=== PATIENT | female | born 1940 | race Caucasian/White ===

== ENCOUNTER 2018-12-20 10:32 | Inpatient (IN) ==
[2018-12-20] MEDS ORDERED: MORPHINE IV ONE (10:53)
[2018-12-20] MEDS ORDERED: ZOFRAN IV ONE (10:53)
--- NOTE | 2018-12-20 11:22 | Diag Imaging Result Doc PS360 ---
EXAM: ANKLE COMPLETE RIGHT 12/20/2018 HISTORY: injury TECHNIQUE: Right ankle three views COMMENT: There is a comminuted fracture of the distal fibula which is fractured in two places. There is a fracture of the medial malleolus. The plafond is subluxed medially with respect to the talar dome. IMPRESSION: Unstable ankle fracture. Electronically signed by Marito Madison 12/20/2018 11:20 AM
[2018-12-20] MEDS ORDERED: ATIVAN IV ONE (11:29)
--- NOTE | 2018-12-20 11:29 | PROVIDER DOCUMENTATION ---
This chart was entered by Nicky Villalta Scribe, acting as scribe for Angela Harrell CRNP. HPI-Musculoskeletal Pain/Inj - GENERAL Chief Complaint: Fall Stated Complaint: FALL/RIGHT ANKLE PAIN Time Seen by Provider: 12/20/18 10:52 Source: patient, EMS ([facility]) - HX OF PRESENT ILLNESS-MUSKULOSKELTAL Nature of Presenting Problem: 78 yof presents to the ed via ems with rt ankle deformity post fall. pt sts they tripped and ow can not bear weight on rt ankle. Quality of Pain: reports: sharp Severity in ED: severe Onset/Duration: just prior to arrival Timing: still present Modifying Factors: improves with: immobilization. worse with: movement, palpation Any recent injury?: Yes (fall) Locality of Occurance: Home Similar Symptoms Previously?: No Recently seen or treated by another doctor?: No - FALL INJURY Location of Pain/Injury: reports: other (rt ankle) Pain Radiation: reports: no radiation Reason for Fall: reports: tripped Symptoms prior to fall:: reports: none Loss of Consciousness: no loss of consciousness Injury Associated Symptoms: reports: snap/crack/pop sensation, unable to bear weight, trouble walking. denies: back/neck pain, chest pain, headaches, shortness of breath - LOWER EXTREMITY PAIN/INJURY Lower Extremities Pain: ankle: right (with deformity noted ) Context / Method of Injury: reports: fell Associated Symptoms: reports: denies symptoms Review of Systems - Adult - REVIEW OF SYSTEMS - ADULT Constitutional: denies: chills, fever Eyes: reports: no symptoms reported Ears, Nose, Mouth & Throat: reports: no symptoms reported Cardiovascular: denies: chest pain, palpitations Respiratory: denies: shortness of breath, wheezing Gastrointestinal: denies: abdominal pain, diarrhea, nausea, vomiting Genitourinary: reports: no symptoms reported Musculoskeletal: reports: see HPI, joint pain (rt ankle), joint swelling (rt ankle). denies: neck pain Integumentary: reports: no symptoms reported Neurological: reports: no symptoms reported Psychiatric: reports: no symptoms reported Endocrine: reports: no symptoms reported Hematologic/Lymphatic: reports: no symptoms reported Allergic/Immunologic: reports: no symptoms reported All Other Systems: Reviewed and Negative Past History - Adult - PAST MEDICAL HISTORY-ADULT Review of Records: reports: Old Records Reviewed, Nursing Assessment Review, Medications Reviewed, Social history reviewed & non-contributory. Major Childhood Illnesses: reports: denies history Cardiovascular: reports: CAD, HTN, hyperlipidemia Respiratory: reports: denies history Gastrointestinal: reports: denies history Obstetrical/Gynecological: reports: denies history Genitourinary: reports: denies history Musculoskeletal: reports: denies history Neurological: reports: denies history Psychiatric: reports: anxiety, depression Endocrine/Immune: reports: denies history Other Conditions: reports: other (breast cancer) - PRIOR SURGERIES/PROCEDURES Surgical/Procedure History: reports: appendectomy, cholecystectomy, breast - IMMUNIZATION STATUS Childhood Immunizations: See Nurse Assessment Flu Vaccine: See Nurse Assessment - FAMILY HISTORY Family History: reviewed, not pertinent - SOCIAL HISTORY Smoking: denies Substance Use: denies Living Situation: family Physical Exam-Injury Related - Physical Exam-Injury Related Initial Vital Signs Reviewed: Yes General Appearance: appears well, alert, mild distress Eyes: PERRL/EOMI, pink conjunctivae Head, Ears, Nose, Mouth & Throat: moist mucous membranes, normal ENT inspection Neck: non-tender, full range of motion, supple, normal inspection Respiratory: chest non-tender, lungs clear, normal breath sounds Cardiovascular: normal peripheral pulses, tachycardia (119) Chest/Breast: deferred Abdominal Exam: normal bowel sounds, non tender, soft Female Genitalia/Pelvic Exam: deferred Rectal Exam: deferred Hemoccult Exam: deferred Lymphatic: no adenopathy Back Exam: normal inspection, no CVA tenderness, no vertebral tenderness Extremity: normal capillary refill, pelvis stable, deformity (rt ankle), swelling (rt ankle), tenderness (rt ankle). negative: normal gait Integumentary: normal color, warm/dry, ecchymosis (rt ankle), swelling (rt ankle), tenderness (rt ankle) Neurologic: grossly normal Psych/Mental Status: normal mood/affect, normal thought content, normal thought process, oriented x 3 Progress - PLAN OF CARE/RESULTS Progress/Plan/Lab Results: Vital Signs - 8 hr 12/20/18 10:35 12/20/18 11:19 12/20/18 11:37 Temperature 97.5 F L Pulse Rate 119 H 96 H 95 H Respiratory Rate 22 23 15 Blood Pressure 146/61 184/75 151/112 O2 Sat by Pulse Oximetry 98 99 100 12/20/18 11:38 12/20/18 11:40 12/20/18 11:42 Temperature Pulse Rate 91 H 89 Respiratory Rate 18 16 Blood Pressure 151/112 152/82 152/82 O2 Sat by Pulse Oximetry 100 99 12/20/18 12:01 12/20/18 12:15 12/20/18 12:31 Temperature Pulse Rate 88 88 81 Respiratory Rate 16 21 15 Blood Pressure 141/68 141/68 135/71 O2 Sat by Pulse Oximetry 99 98 98 12/20/18 12:52 12/20/18 13:02 12/20/18 13:27 Temperature Pulse Rate 91 H 95 H 71 Respiratory Rate 15 18 12 Blood Pressure 135/71 141/77 119/61 O2 Sat by Pulse Oximetry 100 98 98 12/20/18 13:29 12/20/18 13:31 Temperature Pulse Rate 72 70 Respiratory Rate 13 16 Blood Pressure 119/61 116/50 O2 Sat by Pulse Oximetry 99 98 Laboratory Results - last 24 hr 12/20/18 12/20/18 12/20/18 11:01 11:01 13:16 WBC 8.34 RBC 4.30 Hgb 12.5 Hct 37.3 MCV 86.7 MCH 29.1 MCHC 33.5 RDW Std Deviation 13.7 Plt Count 372 MPV 10.6 H Immature Gran % (Auto) 0.0 Neut % (Auto) 78.1 H Lymph % (Auto) 15.1 L [place] % (Auto) 5.8 Eos % (Auto) 0.8 Baso % (Auto) 0.2 Immature Gran # (Auto) 0.00 Neut # (Auto) 6.51 H Lymph # (Auto) 1.26 [place] # (Auto) 0.48 Eos # (Auto) 0.07 Baso # (Auto) 0.02 Sodium 143 Potassium 3.8 Chloride 107 Carbon Dioxide 22 L Anion Gap 14 BUN 14 Creatinine 0.5 Estimated GFR/1.73 m2 > 60 BUN/Creatinine Ratio 28 Glucose 123 H Calculated Osmolality 287 Calcium 9.1 Total Bilirubin 1.24 H AST 18 ALT 14 Alkaline Phosphatase 65 Total Protein 6.3 Albumin 4.5 Globulin 1.8 Albumin/Globulin Ratio 2.5 Urine Source CLEAN CATCH Urine Color YELLOW Urine Turbidity CLEAR Urine pH 6.0 Ur Specific [place] 1.017 Urine Protein NEGATIVE Ur Glucose (Stick) NEGATIVE Ur Ketones (Stick) NEGATIVE Urine Blood NEGATIVE Urine Nitrite NEGATIVE Urine Bilirubin NEGATIVE Urobilinogen Dipstick NORMAL Urine Leukocytes NEGATIVE Urine WBC (Auto) <10 Urine RBC (Auto) <10 U Epithel Cells (Auto) <10 Urine Bacteria (Auto) NEGATIVE Orders Category Date Time Status Betts Cath Insertion ORDERED Care 12/20/18 12:52 Active OCL Splint DIRECTED Care 12/20/18 12:40 Active Saline Loc NOW Care 12/20/18 10:52 Active NPO Diet 12/20/18 11:38 Active ANKLE COMPLETE RIGHT [RAD] Stat Exams 12/20/18 10:52 Completed ANKLE COMPLETE RIGHT [RAD] Stat Exams 12/20/18 13:08 Completed CHEST-PORTABLE [RAD] Stat Exams 12/20/18 12:52 Completed CBC WITH ELECTRONIC DIFF [HEME] Stat Lab 12/20/18 11:01 Completed COMPREHENSIVE METABOLIC PANEL [CHEM] Stat Lab 12/20/18 11:01 Completed URINALYSIS W/POSS RFLX CULT [URINALYSIS] Stat Lab 12/20/18 13:16 Completed Hydromorphone [Dilaudid] Med 12/20/18 12:41 Discontinued 1 mg IV NOW ONE Lorazepam [Ativan] Med 12/20/18 11:29 Discontinued 1 mg IV NOW ONE Morphine Med 12/20/18 10:53 Discontinued 2 mg IV NOW ONE Ondansetron [Zofran] Med 12/20/18 10:53 Discontinued 4 mg IV NOW ONE Propofol [Diprivan 1%] Med 12/20/18 12:39 Discontinued 56 mg IV STAT ONE EKG [EKG] Stat Ther 12/20/18 12:51 Draft Result Diagrams: 12/20/18 11:01 12/20/18 11:01 - EKG 1 Time of EKG reading by physician:: 13:57 EKG Read and Signed by:: Ana Bonilla EKG Interpretation (*Must complete 3 of following elements*): Abnormal Rate: 68 Rhythm: SR [place]: normal QRS: other (Prolonged QT) OR Interval: normal - XRAY 1 XRAY: Right XRAY Study: Ankle Impression: See EMR Report (EXAM: ANKLE COMPLETE RIGHT 12/20/2018 HISTORY: injury TECHNIQUE: Right ankle three views COMMENT: There is a comminuted fracture of the distal fibula which is fractured in two places. There is a fracture of the medial malleolus. The plafond is subluxed medially with respect to the talar dome. IMPRESSION: Unstable ankle fracture. Electronically signed by Marito Madison 12/20/2018 11:20 AM 12/20/18 1120 Interpreting Physician: Marito Madison MD Dictated Date/Time: 12/20/18 1119 cc: Angela Harrell; Jeffry Hernandez MD) 2 XRAY Study: Chest ([facility] - [address], [address], [place] [address] [address] Department of Imaging Patient: KAYLEE CHILDRESSDM Date: 12/20/18#: [id number] : 1940DM Status: REG ERAcct#: [id number] Age/Sex: 78/FRoom/Bed: Loc: ED Ordering Physician: Angela Harrell Family Physician: Jeffry Hernandez MD Reason for Procedure: admit Signed EXAM: CHEST-PORTABLE INDICATION: admit TECHNIQUE: One view COMPARISON: None. FINDINGS: The lungs are grossly clear. There is no discrete pleural fluid collection or pneumothorax. The cardiomediastinal silhouette and central vasculature are grossly unremarkable. IMPRESSION: No evidence of acute pathology by plain radiograph. Electronically signed by Farrukh Joe 12/20/2018 1:47 PM 12/20/18 1347 Interpreting Physician: Farrukh Joe MD Dictated Date/Time: 12/20/18 1347 cc: Angela Harrell; Jeffry Hernandez MD) XRAY Interpretation: See note 3 XRAY: Right XRAY Study: Ankle ([facility] - [address], [address], [place] [address] [facility] - [facility] [place] [address] Department of Imaging Patient: KAYLEE CHILDRESS Date: 12/20/18#: [id number] : 2ADM Status: REG ERAcct#: [id number] Age/Sex: 78/FRoom/Bed: Loc: ED Ordering Physician: Angela Harrell Family Physician: Jeffry Hernandez MD Reason for Procedure: post reduction Signed EXAM: ANKLE COMPLETE RIGHT INDICATION: post reduction TECHNIQUE: 3 views COMPARISON: 12/20/2018 FINDINGS: There has been interval reduction of the comminuted fracture of the distal fibular shaft and the fract ure through the base of the medial malleolus. Their positions are much closer to anatomic position on the current study. No other fractures are appreciated. Casting material is seen overlying the lower leg and ankle. IMPRESSION: Interval reduction of the fractures of the distal tibia and fibula as described. Electronically signed by Farrukh Joe 12/20/2018 1:46 PM 12/20/18 1346 Interpreting Physician: Farrukh Joe MD Dictated Date/Time: 12/20/18 1349 cc: Angela Harrell; Jeffry Hernandez MD) XRAY Interpretation: See note - CONSULTS/PCP/HOSPITALIST Notification #1 *Consult/PCP/Hospitalist*: Nirmala called for Dr. Dow Time Discussed: 12:34 Reason/Comments: Consult Consult Disposition: other (She will talk to Dr. Dow and call back.) #2 Consult: Dr. Dow Time Discussed: 13:00 Reason/Comments: Consult Consult Disposition: other (Reduce Fx and splint before admission) #3 Consult: Jaqueline for Dr. Weber Time Discussed: 14:16 Reason/Comments: Admission Consult Disposition: Will see in ED, Admit Departure - Departure Date of Disposition Decision: 12/20/18 Time of Disposition Decision: 14:17 DIAGNOSIS: Ankle fracture, right Qualifiers: Encounter type: initial encounter Fracture type: closed Qualified Code(s): S82.891A - Other fracture of right lower leg, initial encounter for closed fracture Disposition: ADMITTED INPATIENT Certified Medical Emergency: Emergent Condition: Stable Referrals and Follow-Ups: Jeffry Hernandez MD [Primary Care Provider] - - Critical Care Note This patient required my direct & personal management of CC.: No Attestation - Physician/ CALLIE Attestation Patient care was provided by Advanced Practice Provider:: Yes Advanced Practice Provider:: Angela Harrell Advanced Practice Provider documentation review:: The Mid-level provider do cumentation, treatment plan and medical decision making was reviewed by the physician who agrees with all treatment and medical decision making by the MLP. The physician spent face to face time with patient:: No Advanced Practice Provider documentation review:: Supervising physician onsite and consulted in the evaluation and care of this patient. The physician did not have a face to face encounter with the patient. This chart was documented by the indicated scribe, (Nicky Villalta Scribe) and accurately reflects the services I performed and decisions made by me, Angela Harrell CRNP, as attested by the provider's signature.
[2018-12-20] MEDS ORDERED: DIPRIVAN 1% IV ONE (12:39)
[2018-12-20] MEDS ORDERED: DILAUDID IV ONE (12:41)
[2018-12-20 13:34] LABS: BASO# 0.02 X1000 (0.0-0.2); BASO% 0.2 % (0.0-0.8); EOS# 0.07 X1000 (0.0-0.7); EOS% 0.8 % (0.0-10.0); HEMATOCRIT 37.3 % (37.0-47.0); HEMOGLOBIN 12.5 g/dL (12.0-16.0); LYMPH# 1.26 X1000 (1.2-3.4); LYMPH% 15.1 % (20.5-51.1); MCH 29.1 PG (27-31); MCHC 33.5 g/dL (33-37); MCV 86.7 FL (81-99); MONO# 0.48 X1000 (0.11-0.59); MONO% 5.8 % (1.7-9.3); MPV 10.6 FL (7.4-10.4); NEUT# 6.51 X1000 (1.4-6.5); NEUT% 78.1 % (42.2-75.2); PLT 372 X1000 (130-400); RDW 13.7 % (11.5-14.5); WBC 8.34 X1000 (4.8-10.8)
[2018-12-20 13:48] LABS: URINE SOURCE CLEAN CATCH
--- NOTE | 2018-12-20 13:49 | Diag Imaging Result Doc PS360 ---
EXAM: ANKLE COMPLETE RIGHT INDICATION: post reduction TECHNIQUE: 3 views COMPARISON: 12/20/2018 FINDINGS: There has been interval reduction of the comminuted fracture of the distal fibular shaft and the fracture through the base of the medial malleolus. Their positions are much closer to anatomic position on the current study. No other fractures are appreciated. Casting material is seen overlying the lower leg and ankle. IMPRESSION: Interval reduction of the fractures of the distal tibia and fibula as described. Electronically signed by Farrukh Joe 12/20/2018 1:46 PM
--- NOTE | 2018-12-20 13:49 | Diag Imaging Result Doc PS360 ---
EXAM: CHEST-PORTABLE INDICATION: admit TECHNIQUE: One view COMPARISON: None. FINDINGS: The lungs are grossly clear. There is no discrete pleural fluid collection or pneumothorax. The cardiomediastinal silhouette and central vasculature are grossly unremarkable. IMPRESSION: No evidence of acute pathology by plain radiograph. Electronically signed by Farrukh Joe 12/20/2018 1:47 PM
--- NOTE | 2018-12-20 13:55 | EKG Report ---
Test Performed on : 12/20/2018 1:55:04 PM Test Reason : FALL Blood Pressure : / mmHG Vent. Rate : 068 BPM Atrial Rate : 068 BPM P-R Int : 148 ms QRS Dur : 084 ms QT Int : 452 ms P-R-T Axes : 063 016 068 degrees QTc Int : 480 ms Normal sinus rhythm. Nonspecific T wave abnormality Prolonged QT Abnormal ECG No previous ECGs available Unconfirmed Result
[2018-12-20 13:58] LABS: AGAP 14; ALB/GLOB RATIO 2.5; ALBUMIN 4.5 g/dL (3.5-5.0); ALKALINE PHOSPHATASE 65 U/L (32-104); BUN 14 mg/dL (8-22); CALCIUM 9.1 mg/dL (8.8-10.2); CHLORIDE 107 mmol/L (98-107); COSMO 287; CREATININE 0.5 mg/dL (0.5-0.9); ESTIMATED GFR > 60; GLUCOSE 123 mg/dL (70-104); GOT 18 U/L (10-30); GPT 14 U/L (10-36); POTASSIUM 3.8 mmol/L (3.5-5.1); SODIUM 143 mmol/L (136-145); TCO2 22 mmol/L (25-35); TOTAL BILIRUBIN 1.24 mg/dL (0.20-1.00); TOTAL PROTEIN 6.3 g/dL (6.3-8.3)
[2018-12-20 14:00] LABS: BILIRUBIN URINE NEGATIVE (NEGATIVE); BLOOD URINE NEGATIVE (NEGATIVE); COLOR YELLOW; GLUCOSE URINE NEGATIVE (NEGATIVE); KETONE URINE NEGATIVE (NEGATIVE); LEUKOCYTES URINE NEGATIVE (NEGATIVE); NITRITE URINE NEGATIVE (NEGATIVE); PROTEIN URINE NEGATIVE (NEGATIVE); SP GRAVITY URINE 1.017; TURBIDITY URINE CLEAR (CLEAR); UROBILINOGEN URINE NORMAL (NORMAL)
[2018-12-20 14:05] LABS: UR EPITHELIAL CELLS <10 /HPF (<10); URINE BACTERIA NEGATIVE /HPF; URINE RBC <10 /HPF (<10); URINE WBC <10 /HPF (<10)
[2018-12-20] MEDS ORDERED: KEFZOL 1 GM/D5W 1 GM/50 ML IVPB IV ONE (15:08)
--- NOTE | 2018-12-20 15:29 | ORTHOPAEDICS CONSULTATION ---
DATE: 12/20/2018 REASON FOR CONSULTATION: Right ankle pain after a fall. HISTORY OF PRESENT ILLNESS: Ms. Swift is a 78-year-old female with a past medical history of coronary artery disease, hypertension, hyperlipidemia, who presented to the [facility] Emergency Room by ambulance after a fall in her home. She does live at home alone, but was able to contact EMS after the fall. She denies loss of consciousness or any injury to the head. She denies dizziness, lightheadedness or feeling faint. She states she just tripped in her home and rolled the ankle. She had immediate pain and swelling to the ankle. She was brought to the [facility] Emergency Room where an x-ray revealed a dislocated right bimalleolar ankle fracture. Orthopedics has been consulted for management of the fracture. PAST MEDICAL HISTORY: 1. Coronary artery disease. 2. Primary essential hypertension. 3. Hyperlipidemia. PAST SURGICAL HISTORY: 1. Appendectomy. 2. Cholecystectomy. REVIEW OF SYSTEMS: A 10 point review of systems was conducted and completed and was negative, except for what was mentioned above in the HPI. ALLERGIES: No known drug allergies. SOCIAL HISTORY: This is a 78-year-old female, who lives at home alone. She has still been living independently. She denies smoking, alcohol or illicit drug use. HOME MEDICATIONS: 1. Lisinopril 20 mg p.o. daily. 2. Prilosec 20 mg p.o. daily. 3. Pravachol 80 mg p.o. daily. 4. Requip 2 mg p.o. daily. 5. Norvasc 5 mg p.o. daily. 6. Celexa 20 mg p.o. daily. PHYSICAL EXAMINATION: Current Vital Signs: Temperature 97.5 degrees, pulse 70, respirations 16, blood pressure 116/50. She is satting 98% on 2 L nasal cannula. General: This is a 78-year-old female in no acute distress. Neurological: She is alert and oriented x3 with no focal deficits. HEENT: Head is atraumatic, normocephalic. Pupils are equal, round, reactive to light. Cardiovascular: Regular rate and rhythm. Pulmonary: Breathing is even and unlabored. Equal chest rise. Abdomen: Appears nondistended. Right lower extremity exam: She is in a splint. She has good sensation to the toes. She is able to move the toes. The toes are a little bit cool. Capillary refill is less than 2 seconds. Other extremities: She has no injury to any other extremity. She denies tenderness to palpation to any other extremity IMAGING: A right ankle x-ray prior to reduction shows a bimalleolar ankle fracture with severe displacement. A post reduction film shows better overall reduction with a lateral malleolus and medial malleolus fracture. PLAN: This is an unstable ankle fracture. This will require surgical intervention. We will plan for an open reduction, internal fixation of this right ankle today. I have discussed the procedure in detail with the patient. Dr. Dow has discussed both the procedure in detail and risks and benefits. Risks include, but are not limited to damage to nerves, arteries and veins, malunion, nonunion, hardware-related issues, DVT, infection, poor wound healing, continued pain, and risk of general anesthesia. The patient understands these risks and wished to proceed. She has been n.p.o. She is not on any blood thinners. There is no medical reason not to proceed with surgery. So, we will plan to do this today so we can get this ankle in a better position to protect the skin. Dictated by TOM Daniels for Aidan Dow MD cc: TOM Daniels MD
[2018-12-20] MEDS ORDERED: DIPRIVAN 1% ONE (15:39)
[2018-12-20] MEDS ORDERED: TYLENOL PO PRN (15:40)
[2018-12-20] MEDS ORDERED: NS 1,000 ML IV SCH (15:45)
[2018-12-20] MEDS ORDERED: XYLOCAINE-MPF 2% ONE (15:56)
[2018-12-20] MEDS ORDERED: FENTANYL ONE (15:56)
[2018-12-20] MEDS ORDERED: ROBINUL ONE (15:56)
[2018-12-20] MEDS ORDERED: KEFZOL 1 GM/D5W 1 GM/50 ML IVPB ONE (16:05)
[2018-12-20] MEDS ORDERED: NEOSPORIN G.U. IRRIGANT ONE (16:06)
[2018-12-20] MEDS ORDERED: MARCAINE 0.5% ONE (16:06)
[2018-12-20] MEDS ORDERED: TRANSDERM-SCOP ONE (16:12)
[2018-12-20] MEDS ORDERED: EPHEDRINE ONE (16:25)
[2018-12-20] MEDS ORDERED: DECADRON ONE (16:38)
[2018-12-20] MEDS ORDERED: OFIRMEV 1000 MG/ISOTONIC SOLN 1,000 MG/100 ML BOTTLE ONE (16:38)
[2018-12-20] MEDS ORDERED: ZOFRAN ONE (16:38)
[2018-12-20] MEDS ORDERED: NS 1,000 ML ONE (18:49)
[2018-12-20] MEDS ORDERED: HALDOL IV PRN (20:07)
[2018-12-20] MEDS ORDERED: MILK OF MAGNESIA PO PRN (20:11)
[2018-12-20] MEDS: COLACE PO SCH (20:24)
[2018-12-20] MEDS: NS 1,000 ML IV SCH (20:24)
[2018-12-20] MEDS: OXY IR PO PRN (20:24)
[2018-12-20] MEDS: PERIDEX MT SCH (20:24)
--- NOTE | 2018-12-20 20:52 | HISTORY AND PHYSICAL ---
PRIMARY CARE PROVIDER: Dr. Hernandez. CHIEF COMPLAINT: Right ankle pain after a fall. HISTORY OF PRESENT ILLNESS: Ms. Ama Swift is a 78-year-old female, with a medical history of TIA, hyperlipidemia, hypertension, CO in the past, depression, restless leg syndrome, and left breast cancer, who states that she was on the couch, went to a standing position, and twisted her ankle. She fell and had severe pain in her right ankle. She presented here with those complaints, and imaging revealed that she has an unstable ankle fracture. It is a comminuted fracture of the distal fibula with a fracture in 2 places. There is also a fracture of the medial malleolus. It was reduced while she is in the ER. Dr. Dow was consulted, and it appears that there are plans for surgical repair today. PAST MEDICAL HISTORY: 1. Left breast cancer. 2. TIA. 3. Hyperlipidemia. 4. Hypertension. 5. Myocardial infarction. 6. Depression. 7. Restless leg syndrome. SURGICAL HISTORY: 1. Left mastectomy, around 2000. 2. One cardiac stent, around 15 years ago. 3. Cholecystectomy. 4. Appendectomy. 5. Hysterectomy. 6. Back surgery. SOCIAL HISTORY: Half pack per day smoker in her teens. Occasional alcohol, maybe an alcoholic beverage once a month. Denies any illicit drug use. Lives at home alone. Uses a cane or walker, Rollator for activity. FAMILY HISTORY: Mother had heart failure in her 80s. Hypertension, dad, in his 60s. Had coronary artery disease, hypertension, heart attack, stroke. ALLERGIES: No known drug allergies. HOME MEDICATIONS: 1. Celexa 20 mg p.o. daily. 2. Lisinopril 20 mg p.o. daily. 3. Norvasc 5 mg p.o. daily. 4. Omeprazole 20 mg p.o. daily. 5. Pravachol 80 mg p.o. daily. 6. Requip 2 mg p.o. daily. REVIEW OF SYSTEMS: A 14 point review of systems is complete and all are negative except for those mentioned above in HPI. She does have some pain in that right ankle that comes and goes. PHYSICAL EXAMINATION: VITAL SIGNS: Temperature 97.5 degrees, heart rate 61, respiratory rate 13, blood pressure 139/50, O2 saturation 100% on 2 L. GENERAL: Ms. Ama Swift is a 78-year-old female. She is in no acute distress. She is able to answer questions appropriately. Apparently, they were supposed to go shopping today. HEENT: Atraumatic, normocephalic. Pupils equal, round, reactive to light. Extraocular movements intact. Mucous membranes are dry. NECK: Trachea midline. CARDIOVASCULAR: S1, S2. Regular rate and rhythm. No rubs, gallops, murmurs. No lower extremity edema. +2 dorsalis and radial pulses. Unable to assess the right dorsalis pedal pulse as there is a cast in place. Bilateral radial pulses +2. Negative for JVD or carotid bruits. PULMONARY: Clear to auscultate bilateral breath sounds. No accessory muscle use or work of breathing noted. Tolerating nasal cannula. GI: Soft, nontender, nondistended. Positive bowel sounds x4. EXTREMITIES: Moves all extremities equally except for right leg. It has a heavy cast on it. NEUROLOGIC: Alert and oriented x3. Follows commands. Sensory is intact. SKIN: Warm, dry, intact. LABORATORY DATA: White blood cells 8000, hemoglobin 12, hematocrit 37, platelet count 372,000. Sodium 143, potassium 3.8, BUN 14, creatinine 0.5, glucose 123, calcium 9.1, bilirubin is 1.24, AST 18, ALT 14, albumin 4.5. Urinalysis negative. IMAGIN. Complete 3 view of the right ankle: Comminuted fracture of the distal fibula which is fractured in 2 places, a fracture of the medial malleolus. The plafond is subluxed medially with respect to the talar dome. 2. Chest x-ray: No evidence of acute pathology. 3. Repeat ankle x-ray after reduction shows interval reduction of the fractures of the distal tibia and fibula as described. ASSESSMENT AND PLAN: 1. Unstable ankle fracture on the right. She is going to require surgical intervention. Will be performed today by Dr. Dow. She is n.p.o. at this time. 2. Hypertension. Will continue lisinopril and Norvasc. 3. Hyperlipidemia. Continue pravastatin. 4. Gastroesophageal reflux disease. Continue Prilosec. 5. Restless leg syndrome. Continue Requip. 6. Depression. Continue Celexa. 7. Deep venous thrombosis prophylaxis. Will be postop ordered. Dictated by TOM Lucio for Riki Weber MD cc: TOM Lucio MD I agree with most components of history, physical, assessment and plan. A separate addendum has been dictated. MTDD
--- NOTE | 2018-12-20 23:04 | PROGRESS NOTE ---
DATE: 12/20/2018 SUBJECTIVE: I saw Ms. Swift after her right ankle surgery. In brief, she presented with right ankle fracture and she underwent surgery. She is currently denying chest pain or shortness of breath. She states she had a coronary artery disease stent in the year 1999. However, she is not taking aspirin or any beta luciano. OBJECTIVE: Vitals: Temperature of 98.2 degrees, pulse 88, respiratory rate 14, blood pressure 130/61, saturating 100% on room air. General: Does not appear in any acute distress. Oral cavity: Moist. Air entry bilaterally equal. No wheeze, rhonchi, crackles. Her right leg he is in orthopedic cast. LABORATORY: Essentially unremarkable. ASSESSMENT: 1. Right ankle fracture. 2. History of coronary artery disease. 3. Essential hypertension. 4. Hyperlipidemia. PLAN: I will resume her home medications as tolerated. Will appreciate orthopedic recommendations. Continue her on ropinirole for restless legs syndrome and omeprazole for GI prophylaxis. DISPOSITION: I will continue to monitor patient inside the hospital. Plan of care discussed with her. Her questions have been answered. cc: Riki Weber MD
[2018-12-20] MEDS: KEFZOL 1 GM/D5W 1 GM/50 ML IVPB IV SCH (23:38)
[2018-12-20] MEDS: MORPHINE IV PRN (23:38)
[2018-12-20] MEDS: ZOFRAN IV PRN (23:38)
--- NOTE | 2018-12-21 01:43 | OPERATIVE NOTE ---
PROCEDURE DATE: 12/20/2018 PREOPERATIVE DIAGNOSIS: Right ankle fracture subluxation with comminuted medial malleolar fracture and comminuted distal fibular shaft. POSTOPERATIVE DIAGNOSIS: Right ankle fracture subluxation with comminuted medial malleolar fracture and comminuted distal fibular shaft, syndesmotic instability. PROCEDURE: Open reduction internal fixation right comminuted medial malleolar fracture, comminuted fibular shaft, and syndesmotic stabilization. SURGEON: Dr. Aidan Dow. DIRECTOR DRUG: TOM Daniels, who was necessary for proper retraction and manipulation of the extremity during the case. IV FLUIDS: 1700 mL lactated Ringer. ESTIMATED BLOOD LOSS: 20 mL. TOURNIQUET TIME: Was 102 minutes at 350 mmHg. COMPLICATIONS: None. INDICATION: The patient is a pleasant 78-year-old female who is status post fall, injuring her right ankle. She had immediate pain and discomfort, was unable to bear weight. Presented to the emergency room. X-rays revealed a right comminuted distal fibula fracture with associated medial malleolar fracture and lateral subluxation. Given patient's findings, recommendation to proceed with open reduction internal fixation was offered. The patient did undergo provisional reduction in the emergency room and splint was applied. Risks and benefits of surgery were explained, including the risks of anesthesia, , bleeding, infection, failure to relieve pain, postoperative stiffness, nerve injury, blood clots, and other imponderables. All questions were answered. The patient wished to proceed with surgery. DETAILS OF THE OPERATION: Patient was taken to the operating room, placed supine on operating table. Once adequate anesthesia was obtained, patient's right lower extremity was subsequently prepped and draped in usual sterile fashion. An Esmarch was used to exsanguinate the right lower extremity and the tourniquet was inflated to 350 mmHg. A standard lateral incision was made along the distal fibula. The incision was carried down through subcutaneous tissue down to the lateral aspect of the distal fibula. Elevation was then performed at the fracture site. The patient there was noted to have some comminution at the fibula. After obtaining provisional reduction, a 10-hole 1/3 tubular locking plate was placed on the lateral cortex. It was 1st secured with a locking screw distally. Bicortical screws were then placed proximal to the fracture site while maintaining reduction. After this had been performed, 2 locking screws placed proximal fracture site, and 2 locking screws placed distal fracture site. Attention then turned to the medial malleolus, where an anteromedial incision was made on the medial meniscus. Patient was noted to have some evidence of comminution and some very poor bone quality. An attempt at malleolar screws were applied, the patient had inadequate fixation and some evidence of comminution. Therefore, we placed a hook plate. It was 1st secured with the distal screw while maintaining the reduction. A cortical screw was then placed proximal fracture site, followed by a subsequent bicortical screw. It was first secured with a cortical screw in the proximal aspect of the plate. Attempt at locking screw was unsuccessful in the plate; therefore, a corkscrew was then placed. Redrilled, and a cortical screw was placed and had good adequate purchase. A locking screw was then placed in the most proximal hole. Appeared to have good positioning and good alignment of the fracture. After this had been performed, the syndesmosis was evaluated and there was evidence of syndesmotic instability. Therefore, with dorsiflexion, a reduction clamp was then used to reduce the syndesmosis while maintaining reduction. A cortical screw was placed through the plate and across the syndesmosis into the distal tibia. Final C-arm of this had good alignment of the fracture, good position of the hardware. Appeared to have good stability of the syndesmosis. Wounds were copiously irrigated. Vicryl 2-0 was then placed in the anteromedial wound, followed by skin ana. The patient had very poor quality skin, subcutaneous tissues laterally and unable to place 2-0 Vicryl suture and skin ana were placed. Marcaine 0.5% was injected medially and laterally. Adaptic, sterile 4x4's, Webril, posterior splint with stirrup was applied to right lower extremity. Patient tolerated the procedure well. No complications. Transferred to recovery room in stable condition. cc: Aidan Dow MD
[2018-12-21] MEDS: OXY IR PO PRN ×2 (02:02→07:03)
[2018-12-21] MEDS: MORPHINE IV PRN ×8 (02:06→23:25)
[2018-12-21] MEDS: ZOFRAN IV PRN ×2 (05:26→09:24)
[2018-12-21] MEDS: NS 1,000 ML IV SCH (05:31)
[2018-12-21] MEDS: XARELTO PO SCH (05:31)
--- NOTE | 2018-12-21 06:35 | EKG Report ---
Test Performed on : 12/21/2018 05:52:17 AM Test Reason : chest pain Blood Pressure : / mmHG Vent. Rate : 080 BPM Atrial Rate : 080 BPM P-R Int : 162 ms QRS Dur : 086 ms QT Int : 414 ms P-R-T Axes : 062 032 049 degrees QTc Int : 477 ms Normal sinus rhythm. Nonspecific T wave abnormality (mild anterior T wave flattening) Abnormal ECG When compared with ECG of 20-DEC-2018 13:55, (Unconfirmed) No significant change was found Confirmed by Nia MARSHALL, Ramesh Luz ([id number]) on 12/21/2018 9:09:57 AM
[2018-12-21 07:33] LABS: INR 1.34; PROTIME 16.8 Seconds (11.0-16.0)
[2018-12-21 07:34] LABS: PTT 29.3 Seconds (22.3-41.8)
[2018-12-21 07:55] LABS: AGAP 11; ALB/GLOB RATIO 1.5; ALBUMIN 3.5 g/dL (3.5-5.0); ALKALINE PHOSPHATASE 54 U/L (32-104); BUN 10 mg/dL (8-22); CHLORIDE 104 mmol/L (98-107); COSMO 273; CREATININE 0.5 mg/dL (0.5-0.9); ESTIMATED GFR > 60; GLUCOSE 132 mg/dL (70-104); GOT 28 U/L (10-30); GPT 16 U/L (10-36); MAGNESIUM 2.1 mg/dL (1.5-2.7); POTASSIUM 4.1 mmol/L (3.5-5.1); SODIUM 136 mmol/L (136-145); TCO2 21 mmol/L (25-35); TOTAL BILIRUBIN 1.29 mg/dL (0.20-1.00); TOTAL PROTEIN 5.8 g/dL (6.3-8.3)
[2018-12-21 07:57] LABS: EOS# 0.02 X1000 (0.0-0.7); EOS% 0.2 % (0.0-10.0); HEMOGLOBIN 10.8 g/dL (12.0-16.0); LYMPH# 0.76 X1000 (1.2-3.4); LYMPH% 8.5 % (20.5-51.1); MCHC 32.7 g/dL (33-37); MCV 91.7 FL (81-99); NEUT# 7.28 X1000 (1.4-6.5); NEUT% 81.3 % (42.2-75.2); PLT 165 X1000 (130-400); WBC 8.96 X1000 (4.8-10.8)
[2018-12-21] MEDS: KEFZOL 1 GM/D5W 1 GM/50 ML IVPB IV SCH (09:28)
[2018-12-21] MEDS: CELEXA PO SCH (09:29)
[2018-12-21] MEDS: FERROUS SULFATE PO SCH (09:29)
[2018-12-21] MEDS: PRAVACHOL PO SCH (09:29)
[2018-12-21] MEDS: PRILOSEC PO SCH (09:29)
[2018-12-21] MEDS: PERIDEX MT SCH ×2 (09:29→20:45)
[2018-12-21] MEDS: PRINIVIL PO SCH (09:30)
[2018-12-21] MEDS: NORVASC PO SCH (09:30)
[2018-12-21] MEDS: REQUIP PO SCH (09:30)
--- NOTE | 2018-12-21 13:16 | ORTHOPAEDICS PROGRESS NOTE ---
DATE: 12/21/2018 SUBJECTIVE: Patient is a 78-year-old female who status post ORIF for a right comminuted malleolar distal fibular fracture. She is currently resting in comfortably. OBJECTIVE: On physical examination of the right lower extremity, a cast is in place. Appears good capillary refill distally on flexing her toes. She is grossly neurovascularly intact. Her labs are pending. IMPRESSION: Status post open reduction and internal fixation of comminuted medial malleolar fracture and comminuted fibular shaft with syndesmotic stabilization.. PLAN: At this point, the patient will begin mobilization with nonweightbearing right lower extremity. We will consult [facility] for discharge planning for inpatient rehabilitation. cc: Aidan Dow MD
--- NOTE | 2018-12-21 19:18 | PROGRESS NOTE ---
DATE: 12/21/2018 INTERVAL HISTORY: No acute events overnight. Orthopaedic team had seen the patient and had recommended rehab, nonweightbearing on right lower extremity. She underwent open reduction internal fixation of a comminuted medial malleolar fracture and comminuted fibular shaft fracture with syndesmotic stabilization. SUBJECTIVE: She is complaining of pain at the right ankle site. She denies any other complaints though. VITALS: Temperature 98.1 degrees, pulse 74, respiratory 20, blood pressure 150/48, saturating 98% on 1 L nasal cannula. PHYSICAL EXAMINATION: HEENT: Oral cavity is moist. Lungs: Air entry bilaterally equal. No wheeze, rhonchi, or crackles. Cardiovascular: S1, S2 normal. No murmur or gallop. Abdomen: Soft, nontender. She has a urinary catheter. Extremities: No lower extremity edema. Right lower extremity is in an L cast. LABS: Suggestive of slight drop in hemoglobin to 10.8, platelets 165. Electrolytes are largely within acceptable range except slightly elevated bilirubin. ASSESSMENT AND PLAN: 1. Right medial malleolus comminuted fracture and right fibular shaft comminuted fracture with syndesmotic instability, status post open reduction internal fixation on 12/21/2018. Continue nonweightbearing status as per Orthopaedics' recommendation. Continue pain regimen as per Orthopaedics' recommendation, including oxycodone, morphine, acetaminophen and IV fluids. Also appreciate Orthopaedics' recommendation about removing the urine catheter. She has been started on rivaroxaban for deep venous thrombosis prophylaxis 2. History of coronary artery disease, essential hypertension, and hyperlipidemia. Continue home lisinopril, amlodipine and pravastatin. She had a stent placed in the year 1999. She is not listed to be taking aspirin. 3. Continue citalopram for anxiety, omeprazole for chronic gastroesophageal reflux disease, and ropinirole for restless legs syndrome. DISPOSITION: I will continue to monitor patient inside the hospital as we await social work rehab placement sometime next week. Plan of care discussed with her. Her questions have been answered. cc: MD MONICA Shelby
[2018-12-21] MEDS: COLACE PO SCH (20:45)
[2018-12-22] MEDS: OFIRMEV 1000 MG/ISOTONIC SOLN 1,000 MG/100 ML BOTTLE IV SCH ×4 (00:11→22:56)
[2018-12-22] MEDS: OXY IR PO PRN ×4 (01:37→20:25)
[2018-12-22] MEDS: NS 1,000 ML IV SCH ×2 (04:52→04:53)
[2018-12-22] MEDS: XARELTO PO SCH (05:35)
[2018-12-22 06:23] LABS: HEMATOCRIT 29.4 % (37.0-47.0); HEMOGLOBIN 9.4 g/dL (12.0-16.0)
[2018-12-22 06:49] LABS: POTASSIUM 3.4 mmol/L (3.5-5.1); SODIUM 136 mmol/L (136-145)
[2018-12-22 06:50] LABS: AGAP 6; BUN 9 mg/dL (8-22); CALCIUM 7.4 mg/dL (8.8-10.2); CHLORIDE 106 mmol/L (98-107); COSMO 272; CREATININE 0.6 mg/dL (0.5-0.9); ESTIMATED GFR > 60; GLUCOSE 114 mg/dL (70-104); TCO2 24 mmol/L (25-35)
[2018-12-22] MEDS: REQUIP PO SCH (08:39)
[2018-12-22] MEDS: PRINIVIL PO SCH (08:40)
[2018-12-22] MEDS: PRILOSEC PO SCH (08:40)
[2018-12-22] MEDS: FERROUS SULFATE PO SCH (08:41)
[2018-12-22] MEDS: PRAVACHOL PO SCH (08:42)
[2018-12-22] MEDS: CELEXA PO SCH (08:42)
[2018-12-22] MEDS: NORVASC PO SCH (08:43)
[2018-12-22] MEDS: PERIDEX MT SCH ×2 (08:44→20:25)
--- NOTE | 2018-12-22 09:11 | ORTHOPAEDICS PROGRESS NOTE ---
DATE: 12/22/2018 SUBJECTIVE: Patient is pleasant, 78-year-old female who is 2 days status post ORIF for a right comminuted medial malleolar fracture and distal fibular fracture. She feels better this morning. PHYSICAL EXAMINATION: On physical exam, the splint is intact. She has good capillary refill distally. Able flex and extend all of her toes. LABORATORY DATA: Her hemoglobin is 9.4, hematocrit is 29.4. IMPRESSION: Postoperative day #2, status post open reduction and internal fixation of right comminuted medial malleolar fracture and comminuted fibular shaft fracture with syndesmotic stabilization. PLAN: At this point, the patient be maintained on nonweightbearing. We will plan for inpatient rehabilitation. All questions were answered and she agrees to proceed with treatment plan. cc: Aidan Dow MD
[2018-12-22] MEDS: KLOR-CON PO SCH ×2 (14:20→18:22)
--- NOTE | 2018-12-22 14:31 | PROGRESS NOTE ---
DATE: 12/22/2018 INTERVAL HISTORY: No acute events overnight. SUBJECTIVE: Patient denies new complaints. She does have occasional right ankle pain but no symptoms. She has been eating a little bit. She has not had a bowel movement. Her urine catheter was removed. VITALS: Temperature 98.7 degrees, pulse 81, respiratory rate 16, blood pressure 130/50, saturating 95% on 1 L nasal cannula. PHYSICAL EXAMINATION: General: Does not appear in acute distress. Oral cavity is moist. Air entry bilaterally equal. No wheeze, rhonchi, or crackles. Cardiovascular: S1, S2 normal. No murmur, rub, or gallop. Abdomen: Soft, nontender. No urine catheter. No lower extremity edema. Right lower extremity is in a cast. She is denying any chest pain, shortness of breath, cough, nausea, vomiting, abdominal pain. LABS: Suggestive of hemoglobin of 9.4. Her potassium was 3.4, being repleted. Kidney function is normal. No new microbiological or imaging data. ASSESSMENT AND PLAN: 1. Right medial malleolus comminuted fracture and right fibular shaft comminuted fracture with syndesmotic instability, status post open reduction and internal fixation on December 21. Continue nonweightbearing status. Pain medications as per orthopedic recommendation. She has been on the Xarelto for deep venous thrombosis prophylaxis. 2. History of coronary artery disease, essential hypertension, hyperlipidemia. Continue home lisinopril, amlodipine, pravastatin. She had a planned stent placed in the year 1999. She is not listed to be taking aspirin. 3. Others. Continue citalopram for anxiety; omeprazole for chronic gastroesophageal reflux disease; ropinirole for restless legs syndrome. 4. Disposition. The social work rehab consult has been placed. The patient would like to go to [place], close to her family. Awaiting better placement. cc: Riki Weber MD
[2018-12-22] MEDS: COLACE PO SCH (20:25)
[2018-12-23] MEDS: NS 1,000 ML IV SCH ×3 (00:04→10:18)
[2018-12-23] MEDS: OFIRMEV 1000 MG/ISOTONIC SOLN 1,000 MG/100 ML BOTTLE IV SCH ×4 (05:05→21:54)
[2018-12-23] MEDS: XARELTO PO SCH (05:06)
[2018-12-23] MEDS: OXY IR PO PRN ×2 (06:38→21:39)
[2018-12-23 07:08] LABS: HEMATOCRIT 29.3 % (37.0-47.0); HEMOGLOBIN 9.6 g/dL (12.0-16.0)
--- NOTE | 2018-12-23 07:25 | ORTHOPAEDICS PROGRESS NOTE ---
DATE: 12/23/2018 SUBJECTIVE: The patient is a pleasant, 78-year-old female, who is 3 days status post ORIF for a right comminuted medial malleolar fracture and distal fibula fracture. She rested well through the night, and has no complaints this morning. PHYSICAL EXAMINATION: The patient's right lower extremity splint is intact. She has good capillary refill distally. Able to flex all of her toes. LABORATORY DATA: Her labs are pending. IMPRESSION: Postoperative day #3 status post open reduction internal fixation, right comminuted medial malleolar fracture and fibular fracture. PLAN: At this point, [facility] has been consulted for inpatient rehabilitation. She is stable from an Orthopedic standpoint. cc: Aidan Dow MD
[2018-12-23] MEDS: PRAVACHOL PO SCH (09:18)
[2018-12-23] MEDS: CELEXA PO SCH (09:18)
[2018-12-23] MEDS: PRILOSEC PO SCH (09:18)
[2018-12-23] MEDS: REQUIP PO SCH (09:18)
[2018-12-23] MEDS: FERROUS SULFATE PO SCH (09:18)
[2018-12-23] MEDS: PRINIVIL PO SCH (09:18)
[2018-12-23] MEDS: NORVASC PO SCH (09:19)
[2018-12-23] MEDS: PERIDEX MT SCH ×2 (09:19→21:39)
--- NOTE | 2018-12-23 16:11 | Diag Imaging Result Doc PS360 ---
EXAM: CHEST-PORTABLE 12/23/2018 HISTORY: Cough. Rule out post op pneumonia TECHNIQUE: AP portable at 1558 COMMENT: There are some platelike opacities in both lung bases which may be due to atelectasis. This was not clearly present on 12/20/2018. IMPRESSION: Bibasilar atelectasis. Electronically signed by Marito Madison 12/23/2018 4:09 PM
[2018-12-23] MEDS: MIRALAX PO SCH ×2 (18:42→21:39)
--- NOTE | 2018-12-23 19:21 | PROGRESS NOTE ---
DATE: 12/23/2018 INTERVAL HISTORY: No acute events overnight. SUBJECTIVE: She is complaining of some cough especially when she uses incentive spirometer. She denies any chest pain or shortness of breath. We discussed about awaiting rehab bed. VITALS: Temperature 97.9 degrees, pulse 87, respiratory 16, blood pressure 120/44 saturating 96% on room air. PHYSICAL EXAMINATION: General: Does not appear in acute distress. Oral cavity is moist. Air entry bilateral equal. No wheeze or rhonchi. She has mild crackles bilateral especially right infrascapular region. Abdomen: Soft, nontender. She has not had a bowel movement yet for which I am starting her on MiraLAX. Right lower extremity is in heavy orthopedic bandage. She is alert and oriented x3. LABS: CBC suggestive of hemoglobin of 9.6. ASSESSMENT AND PLAN: 1. Right medial malleolus comminuted fracture and right fibular shaft comminuted fracture with syndesmotic instability status post open reduction internal fixation December 21, continue nonweightbearing status as per Ortho recommendations and Xarelto for DVT prophylaxis. I will start her on MiraLAX for constipation. 2. History of coronary artery disease, essential hypertension, hyperlipidemia. Continue home lisinopril, amlodipine, pravastatin. She had a stent placed in year 1999. She is not listed to be taking aspirin. 3. Others, continue citalopram from anxiety, omeprazole for chronic GERD, ropinirole for restless legs syndrome. 4. Disposition. Awaiting rehab bed, I am anticipating discharge in next 24 to 48 hours. Plan of care discussed with the patient, her questions have been answered. Chest x-ray was obtained for her complaints of cough which did not detect any consolidation. cc: Riki Weber MD
[2018-12-23] MEDS: COLACE PO SCH (21:39)
[2018-12-24] MEDS: OXY IR PO PRN ×2 (02:43→13:42)
[2018-12-24] MEDS: XARELTO PO SCH (05:05)
[2018-12-24] MEDS: OFIRMEV 1000 MG/ISOTONIC SOLN 1,000 MG/100 ML BOTTLE IV SCH ×2 (05:56→15:03)
[2018-12-24 07:33] LABS: HEMATOCRIT 29.2 % (37.0-47.0); HEMOGLOBIN 9.6 g/dL (12.0-16.0); MCH 29.6 PG (27-31); MCHC 32.9 g/dL (33-37); MCV 90.1 FL (81-99); MPV 9.9 FL (7.4-10.4); RBC 3.24 XMIL (4.2-5.4); RDW 13.2 % (11.5-14.5); WBC 7.5 X1000 (4.8-10.8)
[2018-12-24 07:38] LABS: AGAP 12; BUN 9 mg/dL (8-22); CALCIUM 7.9 mg/dL (8.8-10.2); CHLORIDE 105 mmol/L (98-107); COSMO 275; CREATININE 0.4 mg/dL (0.5-0.9); ESTIMATED GFR > 60; GLUCOSE 110 mg/dL (70-104); POTASSIUM 3.7 mmol/L (3.5-5.1); SODIUM 138 mmol/L (136-145); TCO2 21 mmol/L (25-35)
[2018-12-24] MEDS: REQUIP PO SCH (10:28)
[2018-12-24] MEDS: MIRALAX PO SCH (10:28)
[2018-12-24] MEDS: PRAVACHOL PO SCH (10:29)
[2018-12-24] MEDS: PRINIVIL PO SCH (10:29)
[2018-12-24] MEDS: CELEXA PO SCH (10:29)
[2018-12-24] MEDS: FERROUS SULFATE PO SCH (10:29)
[2018-12-24] MEDS: NORVASC PO SCH (10:29)
[2018-12-24] MEDS: PRILOSEC PO SCH (10:29)
[2018-12-24] MEDS: PERIDEX MT SCH (10:30)
[2018-12-24] MEDS ORDERED: LACTULOSE PO SCH (13:00)
[2018-12-24 16:45] VITALS: BP 137/60
--- NOTE | 2018-12-24 16:46 | DISCHARGE SUMMARY ---
ADMISSION DATE: 12/20/2018 DISCHARGE DATE: 12/24/2018 FINAL DISCHARGE DIAGNOSES: 1. Open reduction, internal fixation of a right comminuted medial malleolar fracture. 2. Hypertension. 3. History of coronary artery disease. 4. Hyperlipidemia. 5. Constipation. 6. Restless leg syndrome. CONSULTATIONS: Orthopedic consultation Dr. Dow. PROCEDURES: Open reduction, internal fixation of a right comminuted medial malleolar fracture and a comminuted fibular shaft. HOSPITAL COURSE: Ms Swift is a 78-year-old female with a history of hypertension and coronary artery disease, who presented to the ER after suffering a fall. Upon arrival to the ER an ankle x- ray was done that revealed unstable ankle fracture. The patient was admitted to the hospitalist service and orthopedic surgery was consulted. The patient was taken to the OR the same day on 12/20/2018 at which time open reduction, internal fixation of the right comminuted medial malleolar fracture and comminuted fibular shaft was performed. The patient did well postoperatively. Her home medications were resumed. Also, the patient was seen by physical therapy. It was recommended by the orthopedic surgeon that the patient be sent to an inpatient rehab facility. The patient agreed and Planning Analyst was consulted for assistance with placement. The patient was accepted for inpatient rehab at [facility]. The patient is currently medically stable for discharge to inpatient rehabilitation. DISCHARGE MEDICATIONS: 1. Colace 200 mg oral at bedtime. 2. Oxy IR 5 mg oral every 3 hours p.r.n. for pain. 3. Ferrous Sulfate 325 mg oral daily. 4. Lactulose 30 mL oral twice a day. 5. Xarelto 10 mg oral daily. 6. MiraLAX 17 gram oral twice a day. 7. Lisinopril 20 mg oral daily. 8. Omeprazole 20 mg p.o. daily. 9. Pravachol 80 mg p.o. daily. 10. Norvasc 5 mg p.o. daily. 11. Celexa 20 mg p.o. daily. 12. Requip 2 mg oral daily. DISCHARGE DIET: 2 gram sodium diet. ACTIVITY: As tolerated. FOLLOWUP INSTRUCTIONS: The patient will need to follow up with Dr. Dow on 01/02/2019. The patient will also need to follow up with Dr. Hernandez in 2 weeks. cc: MD Jeffry Cho MD
[2018-12-24] MEDS ORDERED: DULCOLAX PR SCH (21:00)
== END 2018-12-24 17:38 | DRG 494 ==
LOC: SUPCPDRO → ED 10:32 → SUATTDRO 18:20 → 4N 18:20
PROVIDERS: ATTEND Internal Medicine